=== PATIENT | male | born 1995 | race Caucasian/White ===

== ENCOUNTER 2017-12-25 18:40 | Emergency (ER) | payer BC, OTHER ==
[2014-06-25 10:14] VITALS: Wt 74.8 kg
[~2017-12-25 18:40] MED LIST: AA/A14DR7 OT; AMO500 PO; AMPH20TA18 PO; CEPH500C24 PO; CEPH500T7 PO; ONDA4TAB PO; OXYC5TAB38 PO; PEN250 PO; PHENERGAN; TOBOD OD; TYLENOL WITH CODEINE
[2017-12-25 19:00] VITALS: BP 141/93
--- NOTE | 2017-12-25 19:00 | ER Report ---
History and Physical Time Seen By MD: 19:00 Hx. of Stated Complaint: PATIENT STATES HE WAS WALKING DOWN STAIRS, SLIPPED AND LANDED WRONG ON HIS RIGHT HAND, PATIENT HAS PAIN, AND SWELLING TO RIGHT HAND. HPI/ROS CHIEF COMPLAINT: Right hand pain HISTORY OF PRESENT ILLNESS: 22-year-old male patient presents to emergency room with complaint of right hand pain. Patient states that he was going down some stairs with his dog when his dog jerked and he lost his balance falling forward. States he fell on a closed fist. Patient states he is pain to the fifth metac arpal. Patient denies any numbness tingling to the hand. Patient states that is not taking any medication for this. Allergies: Coded Allergies: No Known Drug Allergies (Verified , 12/25/17) Home Meds Discontinued Scripts Cephalexin 500 Mg Tab (KEFLEX 500 MG TAB) 500 Mg Tablet, 500 MG PO Q6H, #20 TAB 0 Refills TAKE ONE TABLET BY MOUTH EVERY SIX HOURS Prov:HASMUKH MUJICA MD 11/07/14 Ondansetron (ZOFRAN ODT) 4 Mg Tab.rapdis, 4 MG PO Q6H PRN for NAUSEA/VOMITING, #20 TAB 0 Refills Prov:HASMUKH MUJICA MD 11/07/14 Oxycodone Hcl (OXYCODONE HCL) 5 Mg Tablet, 5 MG PO Q4H PRN for PAIN, #20 TAB 0 Refills Prov:HASMUKH MUJICA MD 11/07/14 Past Medical/Surgical History Patient has a past medical history of liver disease, ADHD. Patient denies any pertinent surgical history. Reviewed Nurses Notes: Yes Hx Smoking: Yes Smoking Status: Current: Every Day Smoker Hx Substance Use Disorder: No Hx Alcohol Use: No Constitutional Vital Sign - Last 24 Hours 12/25/17 12/25/17 12/25/17 12/25/17 18:46 18:55 19:00 19:10 Temp 98.7 Pulse 103 87 76 Resp 16 B/P (MAP) 142/88 141/93 (109) Pulse Ox 95 98 97 O2 Delivery Room Air Physical Exam General appearance: Alert no distress. Respiratory: Chest is non tender, lungs are clear to auscultation. Cardiac: Regular rate and rhythm. Musculoskeletal: Patient has swelling and bruising to the hand over the fifth metacarpal. Patient is good sensation to the fourth and fifth fingers. DIFFERENTIAL DIAGNOSIS: After history and physical exam differential diagnosis was considered for contusion, fracture, sprain. Medical Decision Making EKG/Imaging Imaging 3 views right hand Indication: Fall, pain and swelling along the ulnar aspect Comparison: None Available. Findings: Distal radius and ulna are intact. Radiocarpal and intercarpal articulations are within normal limits. There is a volar angulated fracture proximal shaft fifth metacarpal bone. Otherwise, bones are unremarkable. Impression: 1. Volar angulated fracture fifth metacarpal bone Report Dictated By: Og Garcia MD at 12/25/2017 7:26 PM Report E-Signed By: Og Garcia MD at 12/25/2017 7:27 PM ED Course/Re-evaluation ED Course Patient was admitted to examine, history and physical were obtained. Differential diagnoses were considered. On examination lungs are clear, heart is regular, patient does have swelling over the fifth metacarpal. His good sensation to his fingers is unable to move fingers without any difficulties. An x-ray was done which showed a fracture of the fifth metacarpal. Patient was placed in an ulnar gutter as described below. We will go ahead and discharge patient home at this time. We discussed pain medication with patient, he states that he can take ibuprofen and he felt that would be enough. Discussed with patient that he is to ice his hand to 3 times a day to splint. He is to follow- up with [facility]. Patient verbalized understanding and agreement with plan. Procedure: Splint placement. A ulnar gutter splint was applied. After application of the splint I re- examined the patient. The splint was adequately immobilizing the joint and distal to the splint the patient's circulation and sensation was intact. Decision to Disposition Date: Dec 25, 2017 Decision to Disposition Time: 19:35 Depart Departure Latest Vital Signs Vital Signs Date Time Temp Pulse Resp B/P (MAP) Pulse Ox O2 Delivery O2 Flow Rate FiO2 12/25/17 19:10 76 97 12/25/17 19:00 141/93 (109) 12/25/17 18:46 98.7 16 Room Air Impression: Primary Impression: Metacarpal bone fracture Condition: Improved Disposition: HOME OR SELF-CARE New Scripts No Active Prescriptions or Reported Meds Patient Instructions: Hand Fracture (ED) Additional Instructions: Limit activity by pain. Ice the hand through the splint; 2-3 times a day for 20-30 minutes. If the splint is feeling too tight you may loosen the wayne wrap and rewrap it. Follow up with [facility], call tomorrow to make an appointment. Keep the splint dry, wrap it with a bag and tape to keep the water out. Return to the ER with uncontrollable pain or numbness to the hand. You may take Ibuprofen as needed for pain in addition to the pain medication. Don't take any additional Tylenol while on the pain medication. Problem Qualifiers Primary Impression: Metacarpal bone fracture Encounter type: initial encounter Metacarpal bone: fifth Fracture type: closed Metacarpal location: shaft Fracture alignment: nondisplaced Laterality: right Qualified Codes: S62.356A - Nondisplaced fracture of shaft of fifth metacarpal bone, right hand, initial encounter for closed fracture ANGEL POWELL Dec 25, 2017 19:00
--- NOTE | 2017-12-25 19:30 | RADIOLOGY IMAGING REPORT ---
FACILITY: [facility] - [place] PATIENT NAME: Horacio Thacker : 1995 MR: [id number] V: [id number] EXAM DATE: ORDERING PHYSICIAN: ANGEL POWELL TECHNOLOGIST: Location: [facility] - [place] Patient: Horacio Thacker : 1995 Visit/Account:[id number] Date of Sevice: 12/25/2017 3 views right hand Indication: Fall, pain and swelling along the ulnar aspect Comparison: None Available. Findings: Distal radius and ulna are intact. Radiocarpal and intercarpal articulations are within normal limits . There is a volar angulated fracture proximal shaft fifth metacarpal bone. Otherwise, bones are unre markable. Impression: 1. Volar angulated fracture fifth metacarpal bone Report Dictated By: Og Garcia MD at 12/25/2017 7:26 PM Report E-Signed By: Og Garcia MD at 12/25/2017 7:27 PM WSN:[id number]
== END 2017-12-25 19:44 | disposition home or self-care (01) ==
LOC: ER 19:04
DX: S62.356A Nondisplaced fracture of shaft of fifth metacarpal bone, right hand, initial encounter for closed fracture (principal); W10.9XXA Fall (on) (from) unspecified stairs and steps, initial encounter; Y93.K1 Activity, walking an animal
CPT/HCPCS: 99283